=== PATIENT | female | born 1935 | race Caucasian/White ===

== ENCOUNTER 2017-04-27 14:55 | Inpatient (IN) | payer MEDICARE, BC ==
[2017-04-27] VITALS (201 sets, daily range): BP systolic 90–125; BP diastolic 52–70; PULSE 69–89; TEMP 97.1; O2SAT 94–100
[~2017-04-27] VITALS: Wt 80.6 kg
[2017-04-27 16:06] LABS: COLLECTION METHOD CLEAN CATCH
[2017-04-27 16:10] LABS: BASO % 0.4 % (0.0-2.0); EOS % 0.2 % (0-4.0); GRAN # 7.3 (1.4-6.5); GRAN % 86.2 % (42.2-75.2); HEMATOCRIT 42.1 % (37.0-47.0); HEMOGLOBIN 14.9 g/dl (12.5-16.0); LYMPH # 0.6 (1.2-3.4); LYMPH % 6.7 % (20.0-51.0); MEAN CELL VOLUME 91 fl (80.0-100.0); MEAN CORPUSCULAR HEMOGLOBIN 32 pg (27.0-31.0); MEAN CORPUSCULAR HGB CONC 35 g/dl (33.0-37.0); MEAN PLATELET VOLUME 9.1 fl (7.4-10.4); MONO # 0.5 (0.1-0.6); MONO % 6.1 % (1.7-9.3); PLATELET COUNT 183 K/mm3 (130-400); RED BLOOD COUNT 4.65 M/mm3 (4.10-5.30); REDCELL DISTRIBUTION WIDTH-CV 13.5 % (11.5-14.5)
[2017-04-27 16:11] LABS: PH 5 (5-8); URINE APPEARANCE Hazy; URINE BILIRUBIN Negative (NEGATIVE); URINE BLOOD 1+ (NEGATIVE); URINE COLOR Yellow; URINE GLUCOSE 3+ (NEGATIVE); URINE KETONE Trace (NEGATIVE); URINE LEUKOCYTE ESTERASE 3+ (NEGATIVE); URINE NITRATE Negative (NEGATIVE); URINE PROTEIN(semi-quant) Negative (NEGATIVE); URINE UROBILINOGEN Negative (NEGATIVE)
[2017-04-27 16:12] LABS: SQUAMOUS EPITHELIAL 0-2 /hpf; URINE BACTERIA Rare /hpf; URINE RBC 0-2 /hpf
[2017-04-27] MEDS ORDERED: ELIQUIS 5MG PO (16:21)
[2017-04-27] MEDS ORDERED: DIGITEK0.125 MG PO (16:22)
[2017-04-27] MEDS ORDERED: MULTAQ400 MG PO (16:22)
[2017-04-27 16:23] LABS: ALBUMIN 4.4 gm/dL (3.5-5.0); BILIRUBIN,TOTAL 0.9 mg/dL (0.0-1.0); CALCIUM 9.6 mg/dL (8.4-10.2); CREATININE, serum 0.75 mg/dL (0.52-1.25); POTASSIUM 4.7 mmol/L (3.4-5.0); TOTAL PROTEIN 7.1 gm/dL (6.4-8.2)
[2017-04-27 16:26] LABS: INR 1.5 (0.8-3.0); PROTHROMBIN TIME 17.3 SECONDS (9.7-12.8)
[2017-04-27 16:33] LABS: TROPONIN-I 0.027 ng/mL (0.000-0.034)
[2017-04-27 17:12] LABS: DIGOXIN 0.7 ng/mL (0.8-2.0)
[2017-04-28] VITALS (1066 sets, daily range): BP systolic 108–132; BP diastolic 60–82; PULSE 74–105; TEMP 97–97.8; O2SAT 85–100
[2017-04-28 08:07] LABS: BASO % 0.4 % (0.0-2.0); EOS # 0.1 (0.0-0.7); EOS % 1.5 % (0-4.0); GRAN # 5.5 (1.4-6.5); GRAN % 80.5 % (42.2-75.2); HEMATOCRIT 39.5 % (37.0-47.0); HEMOGLOBIN 13.7 g/dl (12.5-16.0); LYMPH # 0.6 (1.2-3.4); LYMPH % 9.4 % (20.0-51.0); MEAN CELL VOLUME 91 fl (80.0-100.0); MEAN CORPUSCULAR HEMOGLOBIN 32 pg (27.0-31.0); MEAN CORPUSCULAR HGB CONC 35 g/dl (33.0-37.0); MEAN PLATELET VOLUME 9.4 fl (7.4-10.4); MONO # 0.5 (0.1-0.6); MONO % 7.9 % (1.7-9.3); PLATELET COUNT 168 K/mm3 (130-400); RED BLOOD COUNT 4.32 M/mm3 (4.10-5.30); REDCELL DISTRIBUTION WIDTH-CV 13.9 % (11.5-14.5)
[2017-04-28 08:23] LABS: CREATININE, serum 0.68 mg/dL (0.52-1.25); POTASSIUM 4.4 mmol/L (3.4-5.0)
[2017-04-29] VITALS (721 sets, daily range): BP systolic 124–153; BP diastolic 61–86; PULSE 66–87; TEMP 97.1–97.2; O2SAT 86–100
[2017-04-29 05:58] LABS: CALCIUM 8.9 mg/dL (8.4-10.2); CREATININE, serum 0.64 mg/dL (0.52-1.25); POTASSIUM 4.1 mmol/L (3.4-5.0)
[2017-04-29] MEDS ORDERED: OMNICEF 300MG300 MG PO (15:43)
[2017-04-29] MEDS ORDERED: CORDARONE200 MG/TAB PO (15:44)
[2017-04-29] MEDS ORDERED: GLUCOPHAGE XR500 M1 PO (15:45)
== END 2017-04-29 17:10 | disposition home or self-care (01) | DRG 309 ==
LOC: COL.ER 14:55 → ICU 19:35 → EDBEDREQ 19:36 → ICU 04-29 17:10
PROVIDERS: Emergency Medicine; Family Medicine
DX: I48.91 Unspecified atrial fibrillation (principal); I50.22 Chronic systolic (congestive) heart failure; N39.0 Urinary tract infection, site not specified; E87.1 Hypo-osmolality and hyponatremia; E11.65 Type 2 diabetes mellitus with hyperglycemia; D86.9 Sarcoidosis, unspecified; Z85.3 Personal history of malignant neoplasm of breast; Z79.01 Long term (current) use of anticoagulants; I08.3 Combined rheumatic disorders of mitral, aortic and tricuspid valves; B96.1 Klebsiella pneumoniae [K. pneumoniae] as the cause of diseases classified elsewhere
CPT/HCPCS: 99223-AI; 99233-AI; 99239; J0282; J0696; J1815; J1940; J7050; J7060

== ENCOUNTER → 2017-07-27 | Outpatient (CLI) | payer MEDICARE, BC ==
[~2017-07-27] MED LIST: CORDARONE200 MG/TAB PO; DIGITEK0.125 MG PO; ELIQUIS 5MG PO; GLUCOPHAGE XR500 M1 PO; MULTAQ400 MG PO; OMNICEF 300MG300 MG PO
== END ==
LOC: COL.LAB 11:43
DX: E11.9 Type 2 diabetes mellitus without complications (principal); R35.0 Frequency of micturition; Z79.899 Other long term (current) drug therapy

== ENCOUNTER 2017-10-22 06:35 | Inpatient (IN) | payer MEDICARE, BC ==
[~2017-10-22] VITALS: Ht 157.5 cm; Wt 78.6 kg
[2017-10-22 07:21] LABS: HEMATOCRIT 43.8 % (37.0-47.0); HEMOGLOBIN 15.1 g/dl (12.5-16.0); MEAN CELL VOLUME 93 fl (80.0-100.0); MEAN CORPUSCULAR HEMOGLOBIN 32 pg (27.0-31.0); MEAN CORPUSCULAR HGB CONC 35 g/dl (33.0-37.0); MEAN PLATELET VOLUME 8.8 fl (7.4-10.4); PLATELET COUNT 175 K/mm3 (130-400); RED BLOOD COUNT 4.71 M/mm3 (4.10-5.30)
[2017-10-22 07:24] LABS: INR 1.2 (0.8-3.0); PROTHROMBIN TIME 13.9 SECONDS (9.7-12.8)
[2017-10-22 07:26] LABS: PARTIAL THROMBOPLASTIN TIME 34.2 SECONDS (26.0-37.0)
[2017-10-22 07:27] LABS: BILIRUBIN,TOTAL 0.7 mg/dL (0.0-1.0); CREATININE, serum 0.6 mg/dL (0.52-1.25); POTASSIUM 4.5 mmol/L (3.4-5.0); TOTAL PROTEIN 7.1 gm/dL (6.4-8.2)
[2017-10-22 07:42] LABS: TROPONIN-I 0.074 ng/mL (0.000-0.034)
[2017-10-22 07:57] LABS: THYROID STIMULATING HORMONE 0.971 uIU/mL (0.465-4.680)
[2017-10-22 08:52] LABS: BAND 6 % (0-10); LYMPHOCYTE 3 % (20.0-51.0); NEUTROPHILS 88 % (42.0-75.2); PLATELET ESTIMATE NORMAL (NORMAL)
[2017-10-22 10:26] VITALS: BP 137/66; PULSE 98; TEMP 98.5
[2017-10-22] MEDS ORDERED: GLUCOPHAGE XR500 M1 PO (10:37)
[2017-10-22 12:08] VITALS: BP 118/60; PULSE 90; TEMP 97.4
[2017-10-22 15:08] VITALS: BP 133/64; PULSE 95; TEMP 97.5
[2017-10-22 19:59] VITALS: BP 124/51; PULSE 70; TEMP 98.5
[2017-10-22 23:54] VITALS: BP 124/76; PULSE 80; TEMP 98.6
[2017-10-23 03:48] VITALS: BP 122/59; PULSE 93; TEMP 98.4
[2017-10-23 07:12] LABS: CALCIUM 8.7 mg/dL (8.4-10.2); CREATININE, serum 0.58 mg/dL (0.52-1.25); POTASSIUM 3.9 mmol/L (3.4-5.0)
[2017-10-23 08:37] VITALS: BP 119/55; PULSE 88; TEMP 98.4
[2017-10-23 11:55] VITALS: BP 120/60; PULSE 77; TEMP 98.4
[2017-10-23 15:29] VITALS: BP 124/61; PULSE 91; TEMP 98.5
[2017-10-23 20:00] VITALS: BP 108/53; PULSE 81; TEMP 97.8
[2017-10-24 00:37] VITALS: BP 109/57; PULSE 78; TEMP 97.5
[2017-10-24 05:01] VITALS: BP 132/63; PULSE 81; TEMP 97.4
[2017-10-24 07:07] LABS: BASO % 0.8 % (0.0-2.0); EOS # 0.1 (0.0-0.7); EOS % 2.8 % (0-4.0); GRAN # 3.8 (1.4-6.5); HEMATOCRIT 41.3 % (37.0-47.0); HEMOGLOBIN 14.1 g/dl (12.5-16.0); LYMPH # 0.6 (1.2-3.4); LYMPH % 12.4 % (20.0-51.0); MEAN CELL VOLUME 93 fl (80.0-100.0); MEAN CORPUSCULAR HEMOGLOBIN 32 pg (27.0-31.0); MEAN CORPUSCULAR HGB CONC 34 g/dl (33.0-37.0); MEAN PLATELET VOLUME 8.4 fl (7.4-10.4); MONO # 0.5 (0.1-0.6); MONO % 8.8 % (1.7-9.3); PLATELET COUNT 165 K/mm3 (130-400); RED BLOOD COUNT 4.45 M/mm3 (4.10-5.30); REDCELL DISTRIBUTION WIDTH-CV 13.6 % (11.5-14.5)
[2017-10-24 07:11] VITALS: BP 114/51; PULSE 77; TEMP 98.4
[2017-10-24 07:21] LABS: CALCIUM 8.7 mg/dL (8.4-10.2); CREATININE, serum 0.58 mg/dL (0.52-1.25); MAGNESIUM 1.9 mg/dL (1.6-2.3); POTASSIUM 3.8 mmol/L (3.4-5.0)
[2017-10-24 12:02] VITALS: BP 102/54; PULSE 81; TEMP 98.3
[2017-10-24 15:28] VITALS: BP 110/50; PULSE 85; TEMP 97.7
[2017-10-24 20:26] VITALS: BP 111/52; PULSE 80; TEMP 97.6
[2017-10-25 03:54] VITALS: BP 121/58; PULSE 72; TEMP 98.4
[2017-10-25 06:38] LABS: BASO % 0.6 % (0.0-2.0); EOS # 0.2 (0.0-0.7); EOS % 2.9 % (0-4.0); GRAN # 3.7 (1.4-6.5); GRAN % 71.6 % (42.2-75.2); HEMATOCRIT 41.2 % (37.0-47.0); LYMPH # 0.8 (1.2-3.4); LYMPH % 15.8 % (20.0-51.0); MEAN CELL VOLUME 93 fl (80.0-100.0); MEAN CORPUSCULAR HEMOGLOBIN 32 pg (27.0-31.0); MEAN CORPUSCULAR HGB CONC 34 g/dl (33.0-37.0); MEAN PLATELET VOLUME 8.7 fl (7.4-10.4); MONO # 0.5 (0.1-0.6); MONO % 8.9 % (1.7-9.3); PLATELET COUNT 179 K/mm3 (130-400); RED BLOOD COUNT 4.44 M/mm3 (4.10-5.30); REDCELL DISTRIBUTION WIDTH-CV 13.7 % (11.5-14.5)
[2017-10-25 06:42] LABS: CALCIUM 8.8 mg/dL (8.4-10.2); CREATININE, serum 0.58 mg/dL (0.52-1.25)
[2017-10-25 07:50] VITALS: BP 116/53; PULSE 77; TEMP 98.4
[2017-10-25] MEDS ORDERED: COREG 3.123.125 MG/T PO (09:31)
[2017-10-25] MEDS ORDERED: PRINIVIL2.5 MG PO (09:31)
[2017-10-25] MEDS ORDERED: ALDACTONE 25MG25 M1 PO (09:31)
[2017-10-25] MEDS ORDERED: NOVLOG SQ (09:32)
[2017-10-25 11:11] VITALS: BP 99/48; PULSE 86; TEMP 97.6
[2017-10-25 13:19] VITALS: BP 99/48; PULSE 86; TEMP 97.6
== END 2017-10-25 14:23 | DRG 281 ==
LOC: COL.ER 06:35 → MEDICAL 08:03
PROVIDERS: Family Medicine; Internal Medicine Cardiovascular Disease; Physician Assistant; Student in an Organized Health Care Education/Training Program
DX: I50.23 Acute on chronic systolic (congestive) heart failure (principal); I21.A1 Myocardial infarction type 2; E87.1 Hypo-osmolality and hyponatremia; I42.9 Cardiomyopathy, unspecified; Z66 Do not resuscitate; E11.65 Type 2 diabetes mellitus with hyperglycemia; I48.0 Paroxysmal atrial fibrillation; I08.3 Combined rheumatic disorders of mitral, aortic and tricuspid valves; Z85.3 Personal history of malignant neoplasm of breast; Z79.01 Long term (current) use of anticoagulants; I27.22 Pulmonary hypertension due to left heart disease
CPT/HCPCS: OP; 99223-AI; 99233-AI; J1815; J1940

== ENCOUNTER → 2017-11-17 | Outpatient (CLI) | payer MEDICARE, BC ==
[~2017-11-17] MED LIST changes: +ALDACTONE 25MG25 M1 PO; +COREG 3.123.125 MG/T PO; +NOVLOG SQ; +PRINIVIL2.5 MG PO
[2017-11-17 16:08] LABS: CALCIUM 9.8 mg/dL (8.4-10.2); CREATININE, serum 0.69 mg/dL (0.52-1.25); POTASSIUM 4.9 mmol/L (3.4-5.0)
== END ==
LOC: COL.LAB 12:09
PROVIDERS: Family Medicine
DX: I48.91 Unspecified atrial fibrillation (principal); I50.20 Unspecified systolic (congestive) heart failure; Z79.899 Other long term (current) drug therapy

== ENCOUNTER → 2017-12-20 | Outpatient (CLI) | payer MEDICARE, BC ==
[2017-12-20 15:47] LABS: BASO % 0.5 % (0.0-2.0); EOS # 0.1 (0.0-0.7); EOS % 1.6 % (0-4.0); GRAN # 4.8 (1.4-6.5); GRAN % 73.8 % (42.2-75.2); HEMATOCRIT 39.9 % (37.0-47.0); LYMPH % 15.4 % (20.0-51.0); MEAN CELL VOLUME 91 fl (80.0-100.0); MEAN CORPUSCULAR HEMOGLOBIN 32 pg (27.0-31.0); MEAN CORPUSCULAR HGB CONC 35 g/dl (33.0-37.0); MEAN PLATELET VOLUME 8.8 fl (7.4-10.4); MONO # 0.5 (0.1-0.6); MONO % 8.4 % (1.7-9.3); PLATELET COUNT 196 K/mm3 (130-400); RED BLOOD COUNT 4.37 M/mm3 (4.10-5.30); REDCELL DISTRIBUTION WIDTH-CV 13.4 % (11.5-14.5)
[2017-12-20 15:52] LABS: CALCIUM 9.5 mg/dL (8.4-10.2); CREATININE, serum 0.72 mg/dL (0.52-1.25); POTASSIUM 4.5 mmol/L (3.4-5.0)
== END ==
LOC: COL.LAB 15:06
PROVIDERS: Family Medicine
DX: I50.9 Heart failure, unspecified (principal)

== ENCOUNTER 2018-03-12 17:39 | Emergency (ER) | payer MEDICARE, BC ==
[~2018-03-12] VITALS: Ht 154.9 cm; Wt 77.7 kg
[2018-03-12 17:43] VITALS: TEMP 97.5
[2018-03-12 18:31] LABS: BASO % 0.4 % (0.0-2.0); EOS # 0.1 (0.0-0.7); LYMPH # 1.2 (1.2-3.4); LYMPH % 17.7 % (20.0-51.0); MEAN CELL VOLUME 94 fl (80.0-100.0); MEAN CORPUSCULAR HEMOGLOBIN 33 pg (27.0-31.0); MEAN CORPUSCULAR HGB CONC 35 g/dl (33.0-37.0); MEAN PLATELET VOLUME 9.1 fl (7.4-10.4); MONO # 0.5 (0.1-0.6); MONO % 7.6 % (1.7-9.3); PLATELET COUNT 204 K/mm3 (130-400); RED BLOOD COUNT 4.26 M/mm3 (4.10-5.30); REDCELL DISTRIBUTION WIDTH-CV 13.2 % (11.5-14.5)
[2018-03-12] MEDS ORDERED: MULTIPLE VITAMI1 CAP PO (18:31)
[2018-03-12] MEDS ORDERED: LASIX 20MG TABL20 MG PO (18:31)
[2018-03-12] MEDS ORDERED: VITAMIN C500 MG PO (18:31)
[2018-03-12] MEDS ORDERED: ELDERBERRY PO (18:32)
[2018-03-12 18:44] LABS: ALANINE AMINOTRANSFERASE 29 U/L (9-52); ALKALINE PHOSPHATASE 65 U/L (50-136); ANION GAP 8 mmol/L (7-16); AST,SGOT 26 U/L (15-37); BILIRUBIN,TOTAL 0.5 mg/dL (0.0-1.0); BLOOD UREA NITROGEN 33 mg/dL (7-17); CARBON DIOXIDE 27 mmol/L (22-30); CHLORIDE 103 mmol/L (98-107); CREATININE, serum 0.69 mg/dL (0.52-1.25); GLUCOSE 221 mg/dL (74-106); POTASSIUM 4.5 mmol/L (3.4-5.0); SODIUM 138 mmol/L (137-145); TOTAL PROTEIN 6.9 gm/dL (6.4-8.2)
[2018-03-12 18:45] LABS: C-REACTIVE PROTEIN < 0.5 mg/dL (0.0-0.9)
[2018-03-12 18:56] LABS: TROPONIN-I 0.107 ng/mL (0.000-0.034)
[2018-03-12 21:05] VITALS: BP 111/63; PULSE 91
== END 2018-03-12 21:20 | disposition short-term general hospital (02) ==
LOC: COL.ER 17:39
PROVIDERS: Emergency Medicine
DX: I21.4 Non-ST elevation (NSTEMI) myocardial infarction (principal); I48.2 Chronic atrial fibrillation; E11.9 Type 2 diabetes mellitus without complications; I10 Essential (primary) hypertension; Z79.84 Long term (current) use of oral hypoglycemic drugs; Z79.01 Long term (current) use of anticoagulants

== ENCOUNTER → 2018-05-04 | Outpatient (CLI) | payer MEDICARE, BC ==
[~2018-05-04] MED LIST changes: +ELDERBERRY PO; +LASIX 20MG TABL20 MG PO; +MULTIPLE VITAMI1 CAP PO; +VITAMIN C500 MG PO
[2018-05-04 21:10] LABS: COLLECTION METHOD CLEAN CATCH
[2018-05-04 21:32] LABS: PH 5 (5-8); URINE APPEARANCE Clear; URINE BACTERIA None Seen /hpf; URINE BILIRUBIN Negative (NEGATIVE); URINE BLOOD 3+ (NEGATIVE); URINE COLOR Yellow; URINE GLUCOSE 1+ (NEGATIVE); URINE KETONE Negative (NEGATIVE); URINE LEUKOCYTE ESTERASE Negative (NEGATIVE); URINE NITRATE Negative (NEGATIVE); URINE PROTEIN(semi-quant) Negative (NEGATIVE); URINE UROBILINOGEN Negative (NEGATIVE)
== END ==
LOC: ZCOL.LAB 17:43
PROVIDERS: Nurse Practitioner Family
DX: R31.9 Hematuria, unspecified (principal)

== ENCOUNTER → 2018-09-11 | Outpatient (CLI) | payer MEDICARE, BC ==
[2018-09-11 13:41] LABS: CALCIUM 9.8 mg/dL (8.4-10.2); CREATININE, serum 0.77 (0.52-1.25); POTASSIUM 5.2 mmol/L (3.4-5.0)
== END ==
LOC: ZCOL.LAB 12:39
PROVIDERS: Nurse Practitioner Family
DX: I50.22 Chronic systolic (congestive) heart failure (principal)

== ENCOUNTER → 2019-01-10 | Outpatient (CLI) | payer MEDICARE, BC | LOC: COL.RAD 11:08 | DX: E04.2 Nontoxic multinodular goiter (principal) ==

== ENCOUNTER → 2019-01-21 | Outpatient (CLI) | payer MEDICARE, BC ==
[~2019-01-21] VITALS: Ht 157.5 cm; Wt 83.5 kg
[~2019-01-21] MED LIST changes: +THE MEDICINE S200 M2 PO; +VITAMINC1000TA PO; +ZESTRIL2.5 MG PO
[2019-01-21 12:05] VITALS: BP 146/67; PULSE 80
[2019-01-21 13:15] VITALS: BP 117/58; PULSE 86
== END ==
LOC: COL.RAD 11:41
DX: E04.1 Nontoxic single thyroid nodule (principal)